=== PATIENT | male | born 1950 ===

== ENCOUNTER 2025-08-08 16:41 | Inpatient (IN) | payer OTHER, MEDICARE ==
[~2025-08-08] VITALS: Ht 182.9 cm; Wt 69.8 kg
[2025-08-08] VITALS (9 sets, daily range): BP systolic 102–158; BP diastolic 66–100
[2025-08-08] MEDS ORDERED: NS 1,000 ML IV SCH ×2 (17:00→20:15)
[2025-08-08 17:16] LABS: Source, Urine Straight Cath
[2025-08-08 17:19] LABS: Bilirubin, Urine Neg (Neg); Color, Urine Amber (P-Yellow); Glucose Qualitative, Urine Neg (Neg); Ketones, Urine 1+ (Neg); Leukocyte Esterase, Urine 1+ (Neg); Protein, Urine 3+ (Neg); Specific Gravity, Urine 1.025 (1.003-1.022); Urobilinogen, Urine NORM (Normal)
[2025-08-08 17:22] LABS: BASOPHILS ABSOLUTE AUTO 0.11 K/mm3 (0.00-0.23); BASOPHILS PERCENT AUTO 0 % (0-2); EOSINOPHILS ABSOLUTE AUTO 0.01 K/mm3 (0.00-0.68); EOSINOPHILS PERCENT AUTO 0 % (0-6); Hematocrit 40.7 % (37.0-53.0); Hemoglobin 14.7 g/dL (13.5-17.5); IMMATURE GRAN ABSOLUTE AUTO 1.22 K/mm3 (0.00-0.10); IMMATURE GRAN PERCENT AUTO 4 % (0-1); LYMPHOCYTES ABSOLUTE AUTO 0.84 K/mm3 (0.84-5.20); LYMPHOCYTES PERCENT AUTO 3 % (21-46); MONOCYTES ABSOLUTE AUTO 1.17 K/mm3 (0.16-1.47); MONOCYTES PERCENT AUTO 4 % (4-13); Mean Corpuscular HGB Conc 36.1 g/dL (31.5-36.5); Mean Corpuscular Volume 85 fL (80-100); NEUTROPHILS ABSOLUTE AUTO 26.27 K/mm3 (1.96-9.15); NEUTROPHILS PERCENT AUTO 89 % (41-73); NRBC ABSOLUTE 0.00 K/mm3 (0.00-0.02); NRBC Auto 0.0 /100 WBC (0.0-0.2); Platelet Count 225 K/mm3 (150-400); RDW Coefficient Variation 13.7 % (11.7-14.2); RDW Standard Deviation 42.5 fL (35.1-46.3)
[2025-08-08 17:34] LABS: U Amphetamine Screen Not Detected; U Barbiturate Screen Not Detected; U Benzodiazapine Screen Not Detected; U Buprenorphine Screen Not Detected; U Cannabinoids Screen DETECTED; U Cocaine Screen Not Detected; U Methadone Screen Not Detected; U Methamphetamine Screen Not Detected; U Opiates Screen Not Detected; U Oxycodone Screen Not Detected; U Phencyclidine Screen Not Detected
[2025-08-08] MEDS ORDERED: Piperacillin/Tazobactam Sod 4.5 GM in NS 100 ML IV ONE (17:40)
[2025-08-08 17:42] LABS: Alanine Aminotransfer (ALT/SGP 31 U/L (12-78); Albumin, Blood 2.9 g/dL (3.4-5.0); Albumin/Globulin Ratio 0.6 (0.8-1.8); Anion Gap 11 mmol/L (3-11); Aspartate Aminotrans (AST/SGOT 119 U/L (12-37); Bilirubin, Total 1.1 mg/dL (0.1-1.0); Blood Urea Nitrogen 45 mg/dL (8-24); CO2, Blood 19 mmol/L (21-32); Calcium, Blood 8.9 mg/dL (8.5-10.1); Chloride, Blood 114 mmol/L (98-108); Creatinine, Blood 1.36 mg/dL (0.60-1.20); Ethanol (Alcohol), Blood, Med <3 mg/dL; Globulin, Blood 4.6 g/dL (2.2-4.0); Glucose, Blood 131 mg/dL (70-99); Magnesium, Blood 2.0 mg/dL (1.6-2.4); Potassium, Blood 3.9 mmol/L (3.5-5.5); Sodium, Blood 140 mmol/L (136-145); Total Protein, Blood 7.5 g/dL (6.4-8.2)
[2025-08-08 18:10] LABS: Influenza A, PCR NEGATIVE (NEGATIVE); Influenza B, PCR NEGATIVE (NEGATIVE); Resp Syncytial Virus, PCR NEGATIVE (NEGATIVE); SARS-Cov-2 (COVID-19) PCR, MMC NEGATIVE (NEGATIVE)
[2025-08-08] MEDS ORDERED: Ondansetron HCl 2 MG / ML 2ML Vial IV PRN (20:10)
[2025-08-08] MEDS ORDERED: FLU VACC TS2025(65UP)/MF59C/PF 45 MCG/0.5 ML SYRINGE IM SCH (20:15)
[2025-08-08] MEDS ORDERED: LORazepam 2 MG/ML 1ML Injection IV PRN (20:20)
[2025-08-08] MEDS ORDERED: OxyCODONE 5 mg/Acetamin 325 mg TABLET PO PRN (20:25)
[2025-08-08] MEDS ORDERED: CefTRIAXone Sodium 1,000 MG in NS 100 ML IV SCH (21:00)
[2025-08-08] MEDS ORDERED: Bacitracin Ointment 30 GM TOP SCH (21:00)
[2025-08-08] MEDS ORDERED: Lactobacil 2-S.Thermo-Bifido 1 1 Cap PO SCH (21:00)
[2025-08-08] MEDS ORDERED: Heparin Sodium,Porcine 5,000 UNIT/0.5 ML SDV SC SCH (21:00)
[2025-08-08] MEDS ORDERED: Bacitracin Zinc Oint 1GRAM UD Packet TOP SCH (22:29)
--- NOTE | 2025-08-08 23:54 | NUR ---
ASSUMPTION OF CARE FROM ED TO ICU PT ARRIVES FROM ED TO ICU-12. PT ALERT AND ORIENTED TO HIMSELF, PERRLA, MOVING ALL EXTREMETIES, AFEBRILE. PT ON RA AND SPO2 >95% WITH EQUAL CHEST RISE AND EXPANSION, NO COMPLAINTS OF SOB.PT ON CONITUOUS CARDIAC MONITORING, SBP IN THE 120'S AND HR IN THE 70'S, DENIES ANY CHEST PAIN. PT HAS MORENO T/O HIS LEFT SIDED FLANK AREA, LEFT SIDE OF FACE IS REDDENED, SCROTUM IS RED/IRRITATED; SEE CHART FOR PICTURES. PT FOLLOWS COMMANDS BUT IS FREQUENTLY CONFUSED AND NEEDS REORIENTATION (DEMENTIA @ BASELINE). PT HAS 2 PIV INFUSING.
[2025-08-09] VITALS (33 sets, daily range): BP systolic 96–144; BP diastolic 62–118
[2025-08-09 03:51] LABS: BASOPHILS ABSOLUTE AUTO 0.09 K/mm3 (0.00-0.23); BASOPHILS PERCENT AUTO 0 % (0-2); EOSINOPHILS ABSOLUTE AUTO 0.00 K/mm3 (0.00-0.68); EOSINOPHILS PERCENT AUTO 0 % (0-6); Hematocrit 41.0 % (37.0-53.0); Hemoglobin 13.9 g/dL (13.5-17.5); IMMATURE GRAN ABSOLUTE AUTO 0.69 K/mm3 (0.00-0.10); IMMATURE GRAN PERCENT AUTO 3 % (0-1); LYMPHOCYTES ABSOLUTE AUTO 0.96 K/mm3 (0.84-5.20); LYMPHOCYTES PERCENT AUTO 5 % (21-46); MONOCYTES ABSOLUTE AUTO 0.68 K/mm3 (0.16-1.47); MONOCYTES PERCENT AUTO 3 % (4-13); Mean Corpuscular HGB Conc 33.9 g/dL (31.5-36.5); NEUTROPHILS ABSOLUTE AUTO 19.09 K/mm3 (1.96-9.15); NEUTROPHILS PERCENT AUTO 89 % (41-73); NRBC ABSOLUTE 0.00 K/mm3 (0.00-0.02); NRBC Auto 0.0 /100 WBC (0.0-0.2); Platelet Count 170 K/mm3 (150-400); RDW Coefficient Variation 14.0 % (11.7-14.2); RDW Standard Deviation 46.1 fL (35.1-46.3)
[2025-08-09 04:01] LABS: Mean Corpuscular Volume 90 fL (80-100)
[2025-08-09 04:09] LABS: Magnesium, Blood 2.1 mg/dL (1.6-2.4)
[2025-08-09 04:22] LABS: Alanine Aminotransfer (ALT/SGP 33.0 U/L (12-78); Albumin, Blood 2.6 g/dL (3.4-5.0); Albumin/Globulin Ratio 0.6 (0.8-1.8); Anion Gap 8.0 mmol/L (3-11); Aspartate Aminotrans (AST/SGOT 121.0 U/L (12-37); Bilirubin, Total 0.9 mg/dL (0.1-1.0); Blood Urea Nitrogen 42.0 mg/dL (8-24); CO2, Blood 20.0 mmol/L (21-32); Calcium, Blood 8.8 mg/dL (8.5-10.1); Chloride, Blood 118.0 mmol/L (98-108); Creatinine, Blood 1.04 mg/dL (0.60-1.20); Globulin, Blood 4.2 g/dL (2.2-4.0); Glucose, Blood 114.0 mg/dL (70-99); Potassium, Blood 3.7 mmol/L (3.5-5.5); Sodium, Blood 142.0 mmol/L (136-145); Total Protein, Blood 6.8 g/dL (6.4-8.2)
--- NOTE | 2025-08-09 06:24 | NUR ---
SHIFT SUMMARY PT IS ALERT AND OREIENTED TO HIMSELF ONLY (DEMENTIA AT BASELINE), FORGETS LIMITATIONS, FREQUENTLY NEEDS REORIENTING. MAC, TRACKS, MAKES NEEDS KNOWN AND WILL COMMUNICATE APPROPRATELY WHEN ASKED SIMPLE QUESTIONS, HAS SITTER AT BEDSIDE. PT IS ON RA AND SPO2 >95% WITH NO SOB, OCASSIOANL COUGH. SBP IN THE 100-130'S AND HR IN THE 70'S IN NSR. PT BLADDER SCANNED AFTER INABILITY TO USE URINAL, PT THEN HAD AN INCONTINENT VOID, BED CHANGE AND PT IS NOW IN ATTENDS. PT HAS MULTIPLE MORENO TO THE LEFT SIDE OF BODY; SEE CHART. MOVES ALL EXTREMETIES, HAS SIGNIFICANT WEAKNESS. NORMAL SALINE CONTINUES TO INFUSE @ 125ML/HR. WILL REPORT TO ONCOMING DAYSHIFT NURSE
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
[2025-08-09] MEDS ORDERED: Silver Sulfadiazine 1% Cream 25 APPLIC/25 GM Tube TOP SCH (11:00)
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
[2025-08-10] VITALS (8 sets, daily range): BP systolic 120–166; BP diastolic 69–111
[2025-08-10 04:18] LABS: Hematocrit 34.8 % (37.0-53.0); Hemoglobin 12.4 g/dL (13.5-17.5); Mean Corpuscular HGB Conc 35.6 g/dL (31.5-36.5); Mean Corpuscular Volume 88 fL (80-100); NRBC ABSOLUTE 0.00 K/mm3 (0.00-0.02); NRBC Auto 0.0 /100 WBC (0.0-0.2); Platelet Count 178 K/mm3 (150-400); RDW Coefficient Variation 13.8 % (11.7-14.2); RDW Standard Deviation 44.4 fL (35.1-46.3)
[2025-08-10 05:26] LABS: Anion Gap 8.0 mmol/L (3-11); Blood Urea Nitrogen 31.0 mg/dL (8-24); CO2, Blood 21.0 mmol/L (21-32); Calcium, Blood 8.7 mg/dL (8.5-10.1); Chloride, Blood 113.0 mmol/L (98-108); Creatinine, Blood 0.8 mg/dL (0.60-1.20); Glucose, Blood 93.0 mg/dL (70-99); Potassium, Blood 3.6 mmol/L (3.5-5.5); Sodium, Blood 138.0 mmol/L (136-145)
--- NOTE | 2025-08-10 06:17 | NUR ---
SHIFT SUMMARY PATIENT SLEPT OFF AND ON. PATIENT NOT COOPERATIVE IN CARE. YELLS AT NURSES "TO GET THE FUCVK OUT OF HERE". PATIENT GETS COMBATIVE WHEN ROLLING TO CHANGE ATTENDS AND LINENS. TAKES AT LEAST THREE NURSE TO ROLL AND CHANGE PATIENT. A&O TO SELF, PLACE AND SOMETIMES WHY HE IS HERE. AFERIBLE DURING SHIFT. HR IN THE 60-70'S AND SBP 130'S. PATIENT ON ROOM AIR. HAS RIGHT FOREARM AND LEFT WRIST PERIPHERAL IVS. LEFT WRIST IV HAS NACL RUNNING @125MLS/HR. PATIENT HAS WOUNDS ON LEFT HIP AND LEFT SIDE OF ABDOMEN. THE WOUNDS HAVE ZEROFORM AND ABD PADS WITH PAPER TAPE OVER THEM. PATIENT IS INDEPENDENT IN MOVE SELF AROPUND IN BED. BED ALARM IS ON. CALL LIGHT WITHIN REACH.
--- NOTE | 2025-08-10 06:57 | NUR ---
ASSUMPTION OF CARE RECEIVED REPORT FROM NOC NURSE. PT IS DROWSY BUT AROUSABLE. PER NOC NURSE PT WAS CONFUSED, IMPULSIVE, AND HAD FLIGHTS OF IDEAS. PT ON RA, SPO2 >92%. HR IN 60-70S, MAP >65. PT IS INCONTINENT, ATTENDS IN PLACE. PT AMBULATES WITH NURSE ASSIST AND MOVES EXTREMITIES ON HIS OWN. PT HAS TWO PIVS, RFA AND LHA. CALL LIGHT WITHIN REACH WITH NO NEEDS EXPRESSED AT THIS TIME.
--- NOTE | 2025-08-10 10:17 | NUR ---
PROGRESS NOTE PT DISMISSIVE WITH CARE AND WANTS TO LEAVE AMA. PT REFUSED NURSE ASSESSMENT. PT EDUCATED ON RISKS OF LEAVING AMA. CALLED DR. ELLISON. DR ELLISON ASSESSED PT AND RX OT FOR EVAL TO DETERMINE COGNITIVE ABILITY TO MAKE MEDICAL DECISIONS. TRANSFERRING TO MEDICAL FLOOR. GAVE REPORT TO JUANITA RN, WHO WILL BE ASSUMING CARE.
--- NOTE | 2025-08-10 14:01 | NUR ---
Received report from [facility] and assumed care of patient at 1230. Patient is alert and oriented x2; pleasant with this RN and CONSTRUCTION QUALITY CONTROL MANAGER. Dressings are C/D/I to left flank, reinforced left hand dressing. Patient denies needs at this time. Oriented to room, bed/tv controls. Patient assisted into dry attends and hospital pants and back into bed. Call light within reach and bed in lowest postion with bed alarm on for safety.
--- NOTE | 2025-08-10 17:34 | NUR ---
End of shift summary: Patient is alert and oriented x2; pleasant and cooperative with care this shift; impulsive and bed alarm on for safety. Patient up with PT today and walked down hallway with walker; recommend 1-person assist with walker and gaitbelt for safety. Patient denies needs or concerns at this time. Dressing to flank was changed d/t dampness and tape pulling off; patient tolerated well. Denies SOB, CP or pressure, N/V/D or pain at this time or throughout shift. Call light within reach, bed in lowest position and bed alarm on for safety. Will continue to monitor until next shift nurse arrives and report is given.
[2025-08-11 02:05] VITALS: BP 153/86
[2025-08-11 03:48] VITALS: BP 130/98
--- NOTE | 2025-08-11 05:28 | NUR ---
SHIFT SUMMARY NOC PT A/O X 2. CONFUSED, BUT COOPERATIVE WITH CARE. VSS. IVF AND IV ABX PER EMAR. ON TELE SINUS RHYTHM/BBB/PAC'S IN 60'S. L FLANK MORENO DRESSED DURING DAY SHIFT PER MD ORDERS YESTERDAY AND ARE C/D/I, PT HAS DENIED PAIN IN L FLANK. PT REFUSED BEDTIME DVT HEPARIN INJECTION. PT CURRENTLY RESTING WITH BED ALARM ON, BED IN LOWEST POSITION, AND CALL LIGHT WITHIN REACH.
[2025-08-11 05:48] LABS: Hematocrit 35.1 % (37.0-53.0); Hemoglobin 12.3 g/dL (13.5-17.5); Mean Corpuscular HGB Conc 35.0 g/dL (31.5-36.5); Mean Corpuscular Volume 87 fL (80-100); NRBC ABSOLUTE 0.00 K/mm3 (0.00-0.02); NRBC Auto 0.0 /100 WBC (0.0-0.2); Platelet Count 191 K/mm3 (150-400); RDW Coefficient Variation 13.3 % (11.7-14.2); RDW Standard Deviation 42.1 fL (35.1-46.3)
[2025-08-11 07:09] VITALS: BP 143/86
[2025-08-11 11:43] VITALS: BP 129/82
[2025-08-11 15:37] VITALS: BP 129/76
--- NOTE | 2025-08-11 18:03 | NUR ---
End of shift report: Patient is alert and oriented x2-3; impulsive at times. Patient denies SOB, CP or pressure, N/V/D or pain today. Dressing to left flank C/D/I. All medications administered per EMAR. Plans for patient to go home tomorrow with family if possible. Call light within reach, bed in lowest position and bed alarm on for safety. Will continue to monitor until next shift nurse arrives and report is given.
[2025-08-11 20:16] VITALS: BP 134/84
[2025-08-12 00:44] VITALS: BP 129/102
--- NOTE | 2025-08-12 04:08 | NUR ---
SHIFT SUMMARY NOC PT A/O X 2. FORGETFUL AND IMPULSIVE AT TIME, BUT EASILY REDIRECTABLE. VSS. NO ACUTE CHANGES TO REPORT. PT RECEIVED IV ABX PER EMAR. REFUSED DVT HEPARIN AGAIN. DRESSINGS ON ABD AND LW ARE C/D/I. PT EXPECTED TO DISCHARGE HOME TDOAY WITH FAMILY. PT CURRENTLY RESTING WITH BED ALARM ON, BED IN LOWEST POSITION, AND CALL LIGHT WITHIN REACH.
[2025-08-12 05:56] VITALS: BP 160/93
[2025-08-12 07:24] VITALS: BP 153/87
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
[2025-08-12 11:15] VITALS: BP 147/84
[2025-08-12] MEDS ORDERED: LOSA25 PO (12:02)
[2025-08-12] MEDS ORDERED: FOLI1 PO (12:02)
[2025-08-12] MEDS ORDERED: THERA-D2000 UNIT PO (12:02)
[2025-08-12] MEDS ORDERED: JARDIANCE10 MG PO (12:05)
[2025-08-12] MEDS ORDERED: DOXY100 PO (12:05)
[2025-08-12] MEDS ORDERED: LISI5 PO (12:06)
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
== END 2025-08-12 13:20 | disposition home health service (06) | DRG 871 ==
LOC: ER 16:41 → ICUE 20:09 → MEDS 20:09 → ICUE 21:03 → MEDS 08-10 12:15 → ENPENDDIS 08-12 10:37 → MEDS 08-12 13:20
PROVIDERS: Emergency Medicine; Internal Medicine; Nurse Practitioner Acute Care; ADMIT Student in an Organized Health Care Education/Training Program
DX: A41.9 Sepsis, unspecified organism (principal); G92.8 Other toxic encephalopathy; J18.9 Pneumonia, unspecified organism; N17.9 Acute kidney failure, unspecified; M62.82 Rhabdomyolysis; F02.811 Dementia in other diseases classified elsewhere, unspecified severity, with agitation; I50.22 Chronic systolic (congestive) heart failure; I11.0 Hypertensive heart disease with heart failure; R65.20 Severe sepsis without septic shock; T21.22XA Burn of second degree of abdominal wall, initial encounter; T31.0 Burns involving less than 10% of body surface; G30.9 Alzheimer's disease, unspecified; F12.90 Cannabis use, unspecified, uncomplicated; X16.XXXA Contact with hot heating appliances, radiators and pipes, initial encounter
CPT/HCPCS: 36415; 51701; 70450; 71045; 72125; 80048; 80053; 80320; 81001; 82550; 83605; 83735; 83880; 84484; 85025; 85027; 87040; 87086; 87637; 93005; 93010; 93306; 96361; 96374; 97110; 97116; 97129; 97162; 97165; 97530; 97535; 99285-25; A9270; J0456; J0696; J1644; J2060; J2543; J7030; J7050